=== PATIENT | female | born 1970 | race Caucasian/White ===

== ENCOUNTER 2017-06-08 16:44 | Emergency (ER) | payer SELFPAY ==
[~2017-06-08] VITALS: Ht 152.4 cm; Wt 95.0 kg
[2017-06-08 18:46] LABS: BASOPHILS % 1.1 % (0.0-2.0); EOSINOPHILS % 2.9 % (0.0-5.0); HEMATOCRIT. 30.1 % (36.0-48.0); HEMOGLOBIN. 9.1 g/dL (12.0-16.0); LYMPHOCYTES % 25.5 % (20.0-50.0); MEAN CORPUSCULAR HEMOGLOBIN 18.9 pg (28.0-32.0); MEAN CORPUSCULAR VOLUME 62.8 fL (81.0-99.0); MEAN PLATELET VOLUME 8.2 fl (7.4-10.4); MONOCYTES % 7.6 % (2.0-8.0); NEUTROPHILS % 62.9 % (40.0-76.0); PLATELET 432 x1000/uL (130-400); RED CELL DISTRIBUTION WIDTH 18.8 % (11.6-14.6)
[2017-06-08 18:53] LABS: PROTHROMBIN TIME 10.2 sec (9.4-11.6)
[2017-06-08 18:54] LABS: CHLORIDE 108 mEq/L (98-107)
[2017-06-08 18:59] LABS: PLATELET ESTIMATE SLIGHTLY INCREASED
[2017-06-08 19:02] LABS: ETHANOL BLOOD < 10 mg/dL
[2017-06-08 19:39] LABS: CLARITY URINE CLEAR (CLEAR); COLOR URINE YELLOW (YELLOW); KETONES URINE NEGATIVE (NEGATIVE); LEUKOCYTE ESTERASE URINE NEGATIVE (NEGATIVE); NITRITE URINE NEGATIVE (NEGATIVE); OCCULT BLOOD URINE NEGATIVE (NEGATIVE); PH URINE 5.5 (4.5-8.0); PROTEIN URINE NEGATIVE (NEGATIVE); SPECIFIC GRAVITY URINE 1.012 (1.005-1.030); UROBILINOGEN URINE 0.2 E.U./dL (0.2-1.0)
[2017-06-08 19:59] LABS: *AMPHETAMINES SCREEN URINE NEGATIVE (NEGATIVE); *BARBITURATES SCREEN URINE NEGATIVE (NEGATIVE); *BENZODIAZEPINES SCREEN URINE NEGATIVE (NEGATIVE); *COCAINE SCREEN URINE NEGATIVE (NEGATIVE); CANNABINOID URINE SCREEN NEGATIVE (NEGATIVE); METHADONE URINE SCREEN NEGATIVE (NEGATIVE); OPIATES URINE SCREEN NEGATIVE (NEGATIVE)
[2017-06-08 20:00] LABS: PHENCYCLIDINE URINE SCREEN NEGATIVE (NEGATIVE)
[2017-06-08 21:09] VITALS: BP 119/69
== END 2017-06-08 21:16 | disposition home or self-care (01) ==
LOC: ER 17:51
DX: R42 Dizziness and giddiness (principal); R53.1 Weakness; M79.1 Myalgia; F32.9 Major depressive disorder, single episode, unspecified
CPT/HCPCS: 36415; 70450; 70551; 71045; 80053; 80305; 81003; 83880; 84484; 85025; 85610; 93005; 99285; G0482; Z7610

== ENCOUNTER 2022-05-11 09:07 | Emergency (ER) | payer SELFPAY ==
[~2022-05-11] VITALS: Ht 152.4 cm; Wt 118.0 kg
[2022-05-11] MEDS ORDERED: IBUPROFEN 600MG TABLET PO STA (10:37)
[2022-05-11 12:17] LABS: BASOPHILS % 0.9 % (0.0-2.0); EOSINOPHILS % 3.6 % (0.0-5.0); HEMATOCRIT. 31.5 % (36.0-48.0); HEMOGLOBIN. 9.6 g/dL (12.0-16.0); LYMPHOCYTES % 25.8 % (20.0-50.0); MEAN CORPUSCULAR HEMOGLOBIN 21.3 pg (28.0-32.0); MEAN CORPUSCULAR VOLUME 70.1 fL (81.0-99.0); MEAN PLATELET VOLUME 8.6 fl (7.4-10.4); MONOCYTES % 5.5 % (2.0-8.0); NEUTROPHILS % 64.2 % (40.0-76.0); PLATELET 370 x1000/uL (130-400); RED BLOOD CELL COUNT 4.49 mill/uL (4.2-5.4); RED CELL DISTRIBUTION WIDTH 21.6 % (11.6-14.6)
[2022-05-11 12:28] LABS: CHLORIDE 106 mEq/L (98-107)
[2022-05-11] MEDS ORDERED: IBUP-2028 MT (15:22)
[2022-05-11] MEDS ORDERED: ACETAMINOPHEN 325MG TABLET PO ONE (15:45)
[2022-05-11 17:08] VITALS: BP 126/94
== END 2022-05-11 17:09 | disposition home or self-care (01) ==
LOC: ER 10:10
DX: R07.89 Other chest pain (principal); D64.9 Anemia, unspecified; R73.9 Hyperglycemia, unspecified; F32.9 Major depressive disorder, single episode, unspecified; Z86.16 Personal history of COVID-19
CPT/HCPCS: 36415; 71045; 80053; 84484; 85025; 85379; 93005; 93970; 99285

== ENCOUNTER 2024-11-07 18:44 | Emergency (ER) | payer SELFPAY ==
[~2024-11-07] VITALS: Ht 152.4 cm; Wt 121.0 kg
[~2024-11-07 18:44] MED LIST: IBUP-2028 MT
[2024-11-07 18:57] VITALS: TEMP 36.9; O2SAT 97
[2024-11-07 19:24] LABS: BASOPHILS % 0.6 % (0.0-2.0); EOSINOPHILS % 3.0 % (0.0-5.0); HEMATOCRIT. 40.1 % (36.0-48.0); HEMOGLOBIN. 12.9 g/dL (12.0-16.0); LYMPHOCYTES % 17.9 % (20.0-50.0); MEAN PLATELET VOLUME 9.3 fl (7.4-10.4); MONOCYTES % 5.5 % (2.0-8.0); NEUTROPHILS % 73.0 % (40.0-76.0); PLATELET 290 x1000/uL (130-400); RED BLOOD CELL COUNT 4.62 mill/uL (4.2-5.4); RED CELL DISTRIBUTION WIDTH 14.6 % (11.6-14.6)
[2024-11-07 19:31] LABS: CREATININE 0.6 mg/dL (0.6-1.0); UREA NITROGEN BLOOD 10 mg/dL (9-23)
[2024-11-07 19:32] LABS: ASPARTATE AMINOTRANSFERASE 46 IU/L (<34)
[2024-11-07 19:33] LABS: BILIRUBIN DIRECT < 0.1 mg/dL (<=3.0); BILIRUBIN TOTAL 0.3 mg/dL (0.1-1.0); PROTEIN TOTAL 7.1 g/dL (6.0-8.3)
[2024-11-07 19:41] LABS: CLARITY URINE CLEAR (CLEAR); COLOR URINE YELLOW (YELLOW); GLUCOSE URINE 3+ (NEGATIVE); KETONES URINE NEGATIVE (NEGATIVE); LEUKOCYTE ESTERASE URINE NEGATIVE (NEGATIVE); NITRITE URINE NEGATIVE (NEGATIVE); OCCULT BLOOD URINE 2+ (NEGATIVE); PH URINE 5.5 (4.5-8.0); PROTEIN URINE TRACE (NEGATIVE); SPECIFIC GRAVITY URINE 1.028 (1.005-1.030); UROBILINOGEN URINE 0.2 E.U./dL (0.2-1.0)
[2024-11-07 19:52] LABS: BACTERIA URINE 1+; SQUAMOUS EPITHELIAL CELL URINE FEW /lpf (RARE/1+)
[2024-11-07 19:53] LABS: WBC URINE 0-2 /hpf (0-2)
[2024-11-07 20:14] LABS: UCG KIT LOT# 970990; UCG SCREEN NEGATIVE
[2024-11-07 20:15] LABS: UCG KIT EXPIRATION DATE 02/12/2027
[2024-11-07] MEDS: KETOROLAC 30MG/ML VIAL IV NR (20:27)
[2024-11-07] MEDS ORDERED: IBUP-2029 MT (21:12)
[2024-11-07 21:24] VITALS: BP 146/80; PULSE 78; RESP 13; O2SAT 98
[2024-11-07] MEDS ORDERED: IOHEXOL-300 100 ML BOTTLE ONE (22:55)
== END 2024-11-07 21:27 | disposition home or self-care (01) ==
LOC: ER 18:56
DX: K57.32 Diverticulitis of large intestine without perforation or abscess without bleeding (principal); D64.9 Anemia, unspecified; E11.9 Type 2 diabetes mellitus without complications; E66.01 Morbid (severe) obesity due to excess calories; I10 Essential (primary) hypertension; Z98.891 History of uterine scar from previous surgery
CPT/HCPCS: 80076; 80048; 81003; 81025; 83690; 85025; 36415; 74177; 96374; 99285; Q9967; J1885; Z7610